=== PATIENT | male | born 1970 | race Caucasian/White ===

== ENCOUNTER 2021-09-18 07:53 | Outpatient (REF) | payer MEDICARE, MEDICAID, SELFPAY ==
[2021-09-18 09:41] LABS: Hematocrit 50.7 % (42.0-52.0); Hemoglobin 16.6 g/dl (14.0-18.0); Mean Corpuscular HGB Conc 32.7 g/dl (31.0-36.0); Mean Corpuscular Hemoglobin 29.3 pg (27.0-33.0); Mean Corpuscular Volume 89.6 fL (80.0-98.0); Platelet Count 287 X10*3/uL (160-400); Red Blood Count 5.66 X10*6/uL (4.60-5.80); Red Cell Distribution Width 12.7 % (11.0-16.0); White Blood Count 12.2 X10*3/uL (4.8-10.8)
[2021-09-18 10:23] LABS: Alanine Aminotransferase 40 U/L (0-40); Albumin Level 4.6 g/dL (3.5-5.0); Alkaline Phosphatase 87 U/L (39-117); Anion Gap 13 (12-20); Aspartate Amino Transferase 22 U/L (5-37); Bilirubin Total 0.8 mg/dL (0.0-1.0); Blood Urea Nitrogen 13 mg/dL (9-16); Carbon Dioxide 26 mmol/L (22-29); Chloride 105 mmol/L (96-108); Estimated Glomerular Filt Rate > 60; Glucose Random 92 mg/dL (60-115); Potassium 4.5 mmol/L (3.3-5.1); Sodium 139 mmol/L (135-145); Total Protein 7.7 g/dL (6.5-8.0)
[2021-09-18 10:46] LABS: TSH reflex Free T4 1.24 uIU/mL (0.32-4.0)
[2021-09-18 11:01] LABS: Folate 7.8 ng/mL (> or = 4.0); Vitamin B12 388 pg/mL (200-900)
[2021-09-18 17:18] LABS: H Pylori Breath Test Negative (Negative)
[2021-09-22 14:26] LABS: Vitamin D 25-OH, D2 <4 ng/mL; Vitamin D 25-OH, D3 14 ng/mL; Vitamin D 25-OH, Total 14 ng/mL (30-100)
== END 2021-09-18 07:54 | disposition home or self-care (01) ==
LOC: HO.LAB 07:53
PROVIDERS: PCP Student in an Organized Health Care Education/Training Program; Visit Provider Nurse Practitioner Family
DX: R19.7 Diarrhea, unspecified (principal); K21.9 Gastro-esophageal reflux disease without esophagitis; E55.9 Vitamin D deficiency, unspecified; K59.01 Slow transit constipation; F17.210 Nicotine dependence, cigarettes, uncomplicated; Z11.0 Encounter for screening for intestinal infectious diseases
CPT/HCPCS: 36415; 80053; 82306; 82607; 82746; 83013; 84443; 85027; 99202

== ENCOUNTER → 2021-11-29 08:09 | Outpatient (BNVA) | payer MEDICARE, MEDICAID, SELFPAY | PROVIDERS: PCP Student in an Organized Health Care Education/Training Program; Visit Provider Nurse Practitioner Family | DX: Z12.11 Encounter for screening for malignant neoplasm of colon (principal); K21.9 Gastro-esophageal reflux disease without esophagitis; K59.01 Slow transit constipation | CPT/HCPCS: 99212 ==

== ENCOUNTER 2022-04-08 08:27 | Day surgery (SDC) | payer MEDICARE, MEDICAID, SELFPAY ==
[2022-04-03 15:40] VITALS: BMI 29.5
--- NOTE | 2022-04-07 14:20 | P.CONAN_ITS ---
Documented by User: Renee Caicedo NP 04/07/22 14:21 HPI - Anesthesia Eval Consult details Narrative: 51yo M for Upper Endoscopy and Colonoscopy [facility] Surgical History Surgical History Hx of eye surgery Social History Social History Alcohol intake: current Alcohol intake frequency: holidays/special occasions only Patient Tobacco Use Status: Current everyday Tobacco user Tobacco use type: Cigarette Cigarettes Per Day: 15 Use of substances other than those prescribed or required for medical reasons: Yes Substance Use Type: Marijuana Substance Use Frequency: Daily Advance Directives: No Advance Directives Information Provided: Yes Meds Allergies Allergy/AdvReac Type Severity Reaction Status Date / Time No Known Allergies Allergy Verified 11/29/21 08:14 Exam Exam Date and Time: April 07, 2022 1420 Height,Weight and Vital Signs: Height 5 ft 8 in Weight 87.997 kg Pertinent Lab Results Pertinent Lab Results: Laboratory Tests 09/18/21 09/18/21 09:23 09:23 WBC 12.2 H Hgb 16.6 Hct 50.7 Plt Count 287 Sodium 139 Potassium 4.5 Chloride 105 Carbon Dioxide 26 BUN 13 Creatinine 0.88 Assessment and Plan Assessment Anesthesia Assessment: Chart Reviewed Documented by User: Abhinav Umaña MD 04/08/22 09:58 [facility] Family History Family history of problems with anesthesia: No Surgical History Surgical History Hx of eye surgery History of Problems with Anesthesia: No Social History Social History Alcohol intake: current Alcohol intake frequency: holidays/special occasions only Patient Tobacco Use Status: Current everyday Tobacco user Tobacco use type: Cigarette Cigarettes Per Day: 15 Use of substances other than those prescribed or required for medical reasons: Yes Substance Use Type: Marijuana Substance Use Frequency: Daily Advance Directives: No Advance Directives Information Provided: Yes Meds Allergies Allergy/AdvReac Type Severity Reaction Status Date / Time No Known Allergies Allergy Verified 11/29/21 08:14 Exam Airway Mallampati Class: III TM Dist: >3cm Neck ROM: Full Heart: rrr Lungs: clear Assessment and Plan Final Anesthetic Review Family History of Problems with Anesthesia: No History of Problems with Anesthesia: No NPO: Yes ASA Class: II Final Preanesthetic Review: No Changes in Pt Med Stat, Meds/Allgs Chart Reviewed, Consent Obtained/Reviewed and Anes Risks/Benef Reviewed Patient Risk: Intermediate Procedure Risk: Low Anesthetic Plan Anesthetic Plan: MAC: Disposition: Standard PACU
[2022-04-08 08:53] VITALS: BP 118/82; PULSE 71; RESP 16; TEMP 36.3; O2SAT 96; BMI 28.8
--- NOTE | 2022-04-08 09:05 | MHC.SHP ---
Pre-Procedural Eval Section A Date of Service: 04/08/22 Section B Chief Complaint: reflux disease,screening Relevant Family History (Specify if Yes): No Relevant Social History: Tobacco Use (smokes THC) Present Medications: see Short Stay Collaborative assessment Medical History: Significant History (gerd,glaucoma) History of Previous Operations: Relevant previous surgery/procedure and date(s) (Hx of eye surgery) Allergies: Allergies Allergy/AdvReac Type Severity Reaction Status Date / Time No Known Allergies Allergy Verified 11/29/21 08:14 Review of Systems Sugical H&P ROS: Negative: Constitution, Cardiovascular, Respiratory, Neurological, Psychiatric, Hem-Onc, Allergic/Immunologic, Gastrointestinal, Genitourinary, Musculoskeletal, Integumentary, Endocrine and Eyes/Ears/Nose/Throat Exam Surgical H&P Exam: Normal: Heart, Normal: Lungs, Normal: Extremities, Normal: Abdomen, Normal: Skin and Normal: Neurological and Significant Findings: HEENT (prominent eyes) Plan Diagnosis/Plan: Unchanged I have reviewed the history and physical and performed a pertinent physical examination on my patient. No changes have occurred unless specified.
--- NOTE | 2022-04-08 10:07 | W.PM.OPN ---
Operative Note Operative Note Date of Service: 04/08/22 Narrative: Operative Information Procedure Description: EGD, Colonoscopy Indication: reflux, colon screening Anesthesia: MAC FLEXIBLE TRANSORAL UPPER GASTROINTESTINAL ENDOSCOPY AND COLONOSCOPY PROCEDURE NOTE UPPER ENDOSCOPY Consent: Indications for the procedure and potential complications of bleeding, perforation, reaction to medications and missed diagnosis were discussed with the patient and informed consent was obtained. Instrument: Olympus GIF H 190 J mid size upper endoscope Monitoring: Vital signs and clinical assessment, continuous EKG monitoring, Pulse oximetry, Carbon Dioxide monitoring and blood pressure monitoring were done throughout the procedure. Procedure: The patient was placed in the left lateral decubitis position and pre-procedure medications were administered and a bite block was placed. The endoscope was inserted into the mouth and advanced under direct vision to the third part of duodenum. A careful inspection was made as the upper endoscope was withdrawn including a retroflexed examination of the proximal stomach; Findings and interventions are described below. Findings: Larynx:normal Esophagus: GE junction at 37 cm, diaphragm hiatus at 40 cm, consistent with 3 cm sliding hiatal hernia, random esophageal bx taken Stomach:linear erythematous streaks in antrum. Biopsies were obtained. Grade 2 flap valve on retroflexed examination of the cardia. Duodenum: mild bulbar duodenitis, bx taken Intervention: Biopsies as noted above COLONOSCOPY Instrument: Olympus variable stiffness adult scope 190L Colonoscopy Monitoring: Vital signs and clinical assessment, continuous EKG monitoring, Pulse oximetry, Carbon Dioxide monitoring and blood pressure monitoring were done throughout the procedure. Colon withdrawal time was 12 minutes. Procedure: The patient was placed in the left lateral decubitis position and pre-procedure medications were administered. After a digital rectal examination of the ano-rectum, the video colonoscope was inserted into the rectum and advanced through the colon to the cecum/TI. The colonoscope was slowly withdrawn in a retrograde panoramic fashion and the colon mucosa was carefully examined including a retroflexed view of the rectum. Findings and interventions are described below. Procedure Difficulty:easy Findings: Terminal Ileum-normal Cecum: 8-10 mm sessile polyp removed with cold snare Ascending Colon: normal Transverse Colon -normal Descending Colon:normal Sigmoid Colon: normal Rectum: Retroflexion with small internal hemorrhoids, grade I, 12 mm sessile polyp removed with cold snare and x 3 clips applied for hemostasis. Anorectum - normal Colon preparation: [place] Bowel Preparation Scale Right colon; 1-2 Transverse colon: 2 Left colon; 2 (0 = Unprepared colon segment with mucosa not seen due to solid stool that cannot be cleared. 1 = Portion of mucosa of the colon segment seen, but other areas of the colon segment not well seen due to staining, residual stool and/or opaque liquid. 2 = Minor amount of residual staining, small fragments of stool and/or opaque liquid, but mucosa of colon segment seen well. 3 = Entire mucosa of colon segment seen well with no residual staining, small fragments of stool or opaque liquid) Impression and Post Procedure Diagnosis: Endoscopy Findings: hiatal hernia gastritis duodenitis Colonoscopy Findings: polyps internal hemorrhoids Plan: Await Pathology results Repeat Colonoscopy in 2-3 years due to polyps and fair prep close to the cecum or earlier if clinically indicated High fiber diet leaflet avoid straining at stool, epsom salts and sitz bath, anusol supps or cream reflux precautions Above findings were reviewed with the patient and relevant handouts were provided if indicated.
[2022-04-08 10:45] VITALS: BP 96/62; PULSE 72; RESP 20; TEMP 36.2; O2SAT 95
[2022-04-08 11:00] VITALS: BP 114/83; PULSE 74; RESP 16; TEMP 36.2; O2SAT 96
== END 2022-04-08 11:39 | disposition home or self-care (01) ==
PROVIDERS: Visit Provider Internal Medicine Gastroenterology
PROC: (CPT 45385; principal; 2022-04-08 10:00)
DX: Z12.11 Encounter for screening for malignant neoplasm of colon (principal); D12.8 Benign neoplasm of rectum; K63.5 Polyp of colon; K64.0 First degree hemorrhoids; K59.01 Slow transit constipation; K21.9 Gastro-esophageal reflux disease without esophagitis; K29.80 Duodenitis without bleeding; K29.50 Unspecified chronic gastritis without bleeding; K44.9 Diaphragmatic hernia without obstruction or gangrene; Z79.899 Other long term (current) drug therapy; F17.210 Nicotine dependence, cigarettes, uncomplicated
CPT/HCPCS: 45385; 43239; 88305; 88342

== ENCOUNTER → 2022-04-21 07:56 | Outpatient (BNVA) | payer MEDICARE, MEDICAID, SELFPAY | PROVIDERS: Visit Provider Nurse Practitioner Family | DX: K21.00 Gastro-esophageal reflux disease with esophagitis, without bleeding (principal); D36.9 Benign neoplasm, unspecified site; Z98.890 Other specified postprocedural states | CPT/HCPCS: 99212 ==

== ENCOUNTER → 2022-07-23 08:23 | Outpatient (BNVA) | payer MEDICARE, MEDICAID, SELFPAY | PROVIDERS: Visit Provider Nurse Practitioner Family | DX: K21.9 Gastro-esophageal reflux disease without esophagitis (principal); Z79.899 Other long term (current) drug therapy; Z86.010 Personal history of colon polyps | CPT/HCPCS: 99212 ==

== ENCOUNTER → 2023-01-15 10:11 | Outpatient (BNVA) | payer MEDICARE, MEDICAID, SELFPAY | PROVIDERS: Visit Provider Nurse Practitioner Family | DX: K21.9 Gastro-esophageal reflux disease without esophagitis (principal); R14.0 Abdominal distension (gaseous) | CPT/HCPCS: 99212 ==

== ENCOUNTER 2023-06-23 10:05 | Outpatient (REF) | payer MEDICARE, MEDICAID, SELFPAY ==
[2023-06-23 14:47] LABS: Basophils Absolute Auto 0.1 X10*3/uL (0.0-0.2); Basophils Percent Auto 0.4 % (0-2); Eosinophils Absolute Auto 2.2 X10*3/uL (0.0-0.4); Hemoglobin 14.9 g/dl (14.0-18.0); Imm Gran Abs Auto 0.05 X10*3/uL (0.00-0.03); Imm Gran Pct Auto 0.4 % (0.0-0.4); Lymphocytes Percent Auto 14.5 % (20-40); MANUAL DIFF FLAG SCAN; Mean Corpuscular HGB Conc 31.7 g/dl (31.0-36.0); Mean Corpuscular Hemoglobin 28.4 pg (27.0-33.0); Mean Corpuscular Volume 89.7 fL (80.0-98.0); Mean Platelet Volume 9.9 fL (9.4-12.4); Monocytes Absolute Auto 0.9 X10*3/uL (0.1-1.2); Monocytes Percent Auto 6.6 % (2-11); Neutrophils Absolute Auto 8.6 x10*3/uL (2.0-8.3); Neutrophils Percent Auto 62.1 % (45-73); Platelet Count 315 X10*3/uL (160-400); Red Blood Count 5.24 X10*6/uL (4.60-5.80); Red Cell Distribution Width 12.8 % (11.0-16.0); SCAN SMEAR FLAG 1; White Blood Count 13.9 X10*3/uL (4.8-10.8)
[2023-06-23 14:52] LABS: Alanine Aminotransferase 32 U/L (0-40); Albumin Level 4.3 g/dL (3.5-5.0); Alkaline Phosphatase 109 U/L (39-117); Aspartate Amino Transferase 19 U/L (5-37); Bilirubin Direct 0.3 mg/dL (0.0-0.5); Bilirubin Total 0.8 mg/dL (0.0-1.0); Total Protein 7.4 g/dL (6.5-8.0)
[2023-06-23 15:10] LABS: SLIDE REVIEW VERIFIED
== END 2023-06-23 10:06 | disposition home or self-care (01) ==
LOC: HO.CHCLDS 10:05
PROVIDERS: Visit Provider Student in an Organized Health Care Education/Training Program
DX: K62.5 Hemorrhage of anus and rectum (principal)
CPT/HCPCS: 36415; 80076; 85025

== ENCOUNTER 2023-06-29 09:09 | Outpatient (REF) | payer MEDICARE, MEDICAID, SELFPAY ==
[2023-06-29 10:32] LABS: Hematocrit 44.7 % (42.0-52.0); Hemoglobin 14.3 g/dl (14.0-18.0); Mean Corpuscular Hemoglobin 28.3 pg (27.0-33.0); Mean Corpuscular Volume 88.3 fL (80.0-98.0); Mean Platelet Volume 9.1 fL (9.4-12.4); Platelet Count 310 X10*3/uL (160-400); Red Blood Count 5.06 X10*6/uL (4.60-5.80); Red Cell Distribution Width 12.7 % (11.0-16.0); White Blood Count 11.6 X10*3/uL (4.8-10.8)
== END 2023-06-29 09:10 | disposition home or self-care (01) ==
LOC: HO.LAB 09:09
PROVIDERS: PCP Student in an Organized Health Care Education/Training Program; Visit Provider Nurse Practitioner Family
DX: K21.9 Gastro-esophageal reflux disease without esophagitis (principal); K62.5 Hemorrhage of anus and rectum; R14.0 Abdominal distension (gaseous); K64.8 Other hemorrhoids; K59.00 Constipation, unspecified
CPT/HCPCS: 36415; 85027; 99212

== ENCOUNTER 2023-06-29 09:09 | Outpatient (AMB) | payer MEDICARE, MEDICAID, SELFPAY ==
--- NOTE | 2023-06-29 09:21 | A.OFFVIS_ITS ---
Intake Vital Signs 06/29/23 09:22 Height 5 ft 8 in Weight 194 lb 7.163 oz BMI 29.6 BP 124/75 Blood Pressure Location Lt brachial Position Sitting Pulse 67 Intake Visit Reasons: Rectal bleeding Intake Note: Patient presents to in office visit today for rectal bleeding. CC: Patient reports he has been having rectal bleeding for about 3 months. She states he started bleeding rectally since he was placed in a lot of medications. He also c/o nausea almost every morning. Patient states GERD is under control with pantoprazole. 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 Continue avoiding dietary triggers and late night snacking. Staying upright for minimal 3 hours after meals discussed with patient. Postprandial abdominal bloating Patient reports postprandial abdominal bloating. List of food recommended as well as list of food to avoid given to him. Low avoid map diet discussed. Simethicone sent to pharmacy. Patient will call the office if he will continue to have symptoms or any additional GI concerning symptoms. I will see him in 6 months, sooner on as needed basis. Patient is agreeable to this plan and verbalizes understanding of instructions. He was given the opportunity to ask questions all questions answered. ? Thank you for allowing me to participate in his care Plan Medications New simethicone 125 mg PO BID-QID PRN 120 caps 3RF abdominal distention TODAY'S VISIT Patient is here today for follow-up. Patient reports that he has been having on and off rectal bleeding for the last 3 months. Patient reports that his stools are hard. Denies straining. Patient had colonoscopy in March of 2022 that showed internal hemorrhoids, tubular adenoma found and due to suboptimal prep patient was encouraged to return in 2-3 years for colonoscopy. Patient reports occasional postprandial abdominal bloating. Denies any abdominal pain or discomfort. Denies melena. Reports that his symptoms of acid reflux are currently suppressed with pantoprazole. Patient denies any dyspepsia, dysphagia or odynophagia. Patient no longer is taking Colace. Patient reports to be drinking plenty fluids. [facility] Medical History Tubular adenoma Surgical History Hx of colonoscopy History of esophagogastroduodenoscopy (EGD) Hx of eye surgery Social History Alcohol intake: current Alcohol intake frequency: holidays/special occasions only Patient Tobacco Use Status: Current everyday Tobacco user Tobacco use type: Cigarette Cigarettes Per Day: 15 Substance Use Type: Marijuana Review of Systems Const Denies weight gain and Denies weight loss ENT Reports no additional complaints, Denies dysphagia and Denies odynophagia Card Reports no additional complaints Resp Reports no additional complaints GI Denies abdominal pain, Denies belching, Denies melena, Reports bloating (occasional), Reports hematochezia (Occasional), Denies change in bowel habits, Denies dysphagia, Denies excessive flatus, Denies dyspepsia, Denies heartburn, Denies diarrhea, Denies loose stools, Denies nausea, Denies odynophagia and Denies vomiting Reports no additional complaints Musc Reports no additional complaints Neuro Reports no additional complaints Psych Reports no additional complaints Endo Reports no additional complaints Physical Exam Vital Signs: Last Vital Signs Pulse 67 06/29/23 09:22 BP 124/75 06/29/23 09:22 BMI result Body Mass Index 29.6 Const General: healthy appearing, no acute distress and well developed Nutritional Appearance: well nourished Orientation/consciousness: patient oriented x3 HEENT Head: Yes normal to inspection, Yes normocephalic and Yes atraumatic Face and sinus: Yes normal facial exam Mouth: Normal oral and palatal mucosa present Throat: Yes posterior oropharynx normal, Yes tonsils normal and Yes uvula midline Eyes General: appearance normal, both eyes and all related structures Neck Neck: Yes normal visual inspection, Yes full ROM and Yes trachea midline Thyroid: Thyroid normal Resp Effort & Inspection: normal respiratory effort, able to speak in complete sentences, no tracheal deviation and symmetric chest movement Auscultation: clear to auscultation bilaterally Cardio Rate: regular rate GI Inspection: Yes normal to inspection, No distended and Yes obesity Palpation (GI): Soft to palpation, not firm, nontender and No hepatosplenomegaly present Auscultation: normal bowel sounds General: Yes no CVA tenderness Back/Spine/Pelvis Back: no CVA tenderness Skin General skin exam: elasticity normal, turgor normal and dry skin Neuro General: patient oriented x3 Psych Appearance: grossly normal Mental Status: mental status grossly normal Assessment & Plan Assessment & Plan (1) GERD (gastroesophageal reflux disease): Code(s): K21.9 - Gastro-esophageal reflux disease without esophagitis Qualifiers: Esophagitis presence: without esophagitis Qualified Code(s): K21.9 - Gastro-esophageal reflux disease without esophagitis (2) Postprandial abdominal bloating: Code(s): R14.0 - Abdominal distension (gaseous) (3) Rectal bleed: Code(s): K62.5 - Hemorrhage of anus and rectum (4) Internal hemorrhoids without complication: Code(s): K64.8 - Other hemorrhoids Plan Continue pantoprazole every morning half an hour before breakfast. Discussed with patient avoiding dietary triggers and late night snacking. Staying upright for minimal 3 hours after meals discussed with patient. Patient will start taking stool softener 1-2 tablets every evening. Patient will start Proctosol. Patient can also use Epsom salts and Sitz baths. Will send patient to check CBC is to rule out anemia, if anemic will proceed with booking colonoscopy earlier. Patient was also encouraged to increase fluid intake and activity to promote better bowel motility. Patient will return in 4 weeks, sooner on as needed basis. Patient is agreeable to this plan and verbalizes understanding of instructions. He was given the opportunity to ask questions and all questions answered. Thank you for allowing me to participate in his care Orders: Orders Complete Blood Count no Diff Today K21.9 - Gastro-esophageal reflux disease without esophagitis Medications: New hydrocortisone 2.5% (Proctosol HC) 1 appl [place] BID-QID PRN 30 grams 2RF hemorrhoids K64.9 - Unspecified hemorrhoids Refilled docusate sodium 100 mg PO BEDTIME 90 caps 3RF K59.00 - Constipation, unspecified pantoprazole take one tablet half an hour before breakfast and one tablet half an hour before dinner 40 mg PO BID 180 tabs 2RF K21.9 - Gastro-esophageal reflux disease without esophagitis Coding Level of Care Code Est Pt Level 3 (43266) Diagnoses Gastroesophageal reflux disease without esophagitis K21.9 Esophagitis presence: without esophagitis Postprandial abdominal bloating R14.0 Rectal bleed K62.5 Internal hemorrhoids without complication K64.8 Time Spent (min) 30 Comment 20 minutes spent with patient and additional 10 minutes spent reviewing his records
[2023-06-29 09:22] VITALS: BP 124/75; PULSE 67; BMI 29.6
== END 2023-06-29 09:49 | disposition home or self-care (01) ==
PROVIDERS: Visit Provider Nurse Practitioner Family
DX: K21.9 Gastro-esophageal reflux disease without esophagitis (principal); R14.0 Abdominal distension (gaseous); K62.5 Hemorrhage of anus and rectum; K64.8 Other hemorrhoids
CPT/HCPCS: 99213

== ENCOUNTER 2023-08-19 10:17 | Outpatient (AMB) | payer MEDICARE, MEDICAID, SELFPAY ==
--- NOTE | 2023-08-19 10:24 | MHC.OFFVIS ---
Intake Vital Signs 08/19/23 10:25 Height 5 ft 8 in Weight 185 lb BMI 28.1 BP 108/71 Blood Pressure Location Lt brachial Position Sitting Pulse 79 Intake Visit Reasons: 4 week follow up Intake Note: Patient follow up for GERD and lab results. Patient cc: bloody hemorrhoids with some constipation. Denies any other GI issues. Side Hemmer Required: No Accompanied by: Self / Same As Patient Allergies No Known Allergies Allergy (Verified 08/19/23 10:24) HPI 4 week follow up HPI Details LAST VISIT GERD (gastroesophageal reflux disease) Postprandial abdominal bloating Rectal bleed Internal hemorrhoids without complication Plan Continue pantoprazole every morning half an hour before breakfast. Discussed with patient avoiding dietary triggers and late night snacking. Staying upright for minimal 3 hours after meals discussed with patient. Patient will start taking stool softener 1-2 tablets every evening. Patient will start Proctosol. Patient can also use Epsom salts and Sitz baths. Will send patient to check CBC is to rule out anemia, if anemic will proceed with booking colonoscopy earlier. Patient was also encouraged to increase fluid intake and activity to promote better bowel motility. Patient will return in 4 weeks, sooner on as needed basis. Patient is agreeable to this plan and verbalizes understanding of instructions. He was given the opportunity to ask questions and all questions answered. ? Thank you for allowing me to participate in his care Orders Orders Complete Blood Count no Diff Today K21.9 Medications New hydrocortisone 2.5% (Proctosol HC) 1 appl [place] BID-QID PRN 30 grams 2RF hemorrhoids K64.9 Refilled docusate sodium 100 mg PO BEDTIME 90 caps 3RF K59.00 pantoprazole take one tablet half an hour before breakfast and one tablet half an hour before dinner 40 mg PO BID 180 tabs 2RF K21.9 TODAY'S VISIT Patient is here today for follow-up. Patient continues to have occasional acid reflux depending on what he eats. Patient occasionally eats spicy food. Occasional blood in his stool specially after he eats something spicy. Patient continues to take 1 Colace daily. Patient denies any rectal pain or discomfort. Reports blood on the stool after bowel movement, no keith rectal bleeding or melena. Patient denies any dyspepsia, dysphagia or odynophagia. Patient is on Plavix and Eliquis, status post drug-eluting stent placement in May of 2022. Patient denies any abdominal pain or discomfort. Symptoms of acid reflux are suppressed for the most part with pantoprazole. Patient denies any nausea or vomiting. Patient denies any diarrhea. [facility] Medical History Tubular adenoma Surgical History Hx of colonoscopy History of esophagogastroduodenoscopy (EGD) Hx of eye surgery Social History Alcohol intake: current Alcohol intake frequency: holidays/special occasions only Patient Tobacco Use Status: Current everyday Tobacco user Tobacco use type: Cigarette Cigarettes Per Day: 15 Substance Use Type: Marijuana Review of Systems Const Denies weight gain and Denies weight loss ENT Reports no additional complaints, Denies dysphagia and Denies odynophagia Card Reports no additional complaints Resp Reports no additional complaints GI Denies abdominal pain, Denies belching, Denies melena, Denies bloating, Reports hematochezia, Denies change in bowel habits, Reports constipation, Denies dysphagia, Denies excessive flatus, Denies dyspepsia, Reports heartburn (Occasional), Denies diarrhea, Denies loose stools, Denies nausea, Denies odynophagia and Denies vomiting Reports no additional complaints Musc Reports no additional complaints Neuro Reports no additional complaints Psych Reports no additional complaints Endo Reports no additional complaints Physical Exam Vital Signs: Last Vital Signs Pulse 79 08/19/23 10:25 BP 108/71 08/19/23 10:25 BMI result Body Mass Index 28.1 Const General: healthy appearing, no acute distress and well developed Nutritional Appearance: well nourished Orientation/consciousness: patient oriented x3 Resp Effort & Inspection: normal respiratory effort, able to speak in complete sentences, no tracheal deviation and symmetric chest movement Auscultation: clear to auscultation bilaterally Cardio Rate: regular rate GI Inspection: Yes normal to inspection and No distended Palpation (GI): Soft to palpation, not firm, nontender and No hepatosplenomegaly present Auscultation: normal bowel sounds General: Yes no CVA tenderness Back/Spine/Pelvis Back: no CVA tenderness Skin General skin exam: elasticity normal, turgor normal and dry skin Neuro General: patient oriented x3 Psych Appearance: grossly normal Mental Status: mental status grossly normal Assessment & Plan Assessment & Plan (1) GERD (gastroesophageal reflux disease): Code(s): K21.9 - Gastro-esophageal reflux disease without esophagitis Qualifiers: Esophagitis presence: esophagitis presence not specified Qualified Code(s): K21.9 - Gastro-esophageal reflux disease without esophagitis (2) Postprandial abdominal bloating: Code(s): R14.0 - Abdominal distension (gaseous) (3) Rectal bleed: Code(s): K62.5 - Hemorrhage of anus and rectum (4) Internal hemorrhoids without complication: Code(s): K64.8 - Other hemorrhoids Plan Patient will avoid dietary triggers. Avoid spicy food. Increase fluid intake and activity to promote better bowel motility. Patient will increase Colace to 2 capsules daily. Patient will try hemorrhoid cream for an next week 2 to 3 times a day. Sitz baths with Epsom salts daily. I will see him in 5 weeks, sooner on as needed basis. If patient will continue with symptoms we will refer him to surgery. However patient reports that his PCP checked for hemorrhoids and has not seen any. Small Internal hemorrhoids seen on colonoscopy in 2021. We may send him for sigmoidoscopy if he continues to bleed rectally. Patient is agreeable to this plan and verbalizes understanding of instructions. He was given the opportunity to ask questions and all questions answered. Thank you for allowing me to participate in his care. Medications: Changed From docusate sodium 100 mg PO BEDTIME 90 caps 3RF K59.00 - Constipation, unspecified To docusate sodium 200 mg (2 x 100 mg) PO BEDTIME 180 caps 3RF K59.00 - Constipation, unspecified Coding Level of Care Code Est Pt Level 4 (46059) Diagnoses Gastroesophageal reflux disease, unspecified whether esophagitis present K21.9 Esophagitis presence: esophagitis presence not specified Postprandial abdominal bloating R14.0 Rectal bleed K62.5 Internal hemorrhoids without complication K64.8 Time Spent (min) 35 Comment 20 minutes spent with patient and additional 15 minutes spent reviewing his records
[2023-08-19 10:25] VITALS: BP 108/71; PULSE 79; BMI 28.1
== END 2023-08-19 10:50 | disposition home or self-care (01) ==
PROVIDERS: PCP Student in an Organized Health Care Education/Training Program; Visit Provider Nurse Practitioner Family
DX: K21.9 Gastro-esophageal reflux disease without esophagitis (principal); R14.0 Abdominal distension (gaseous); K62.5 Hemorrhage of anus and rectum; K64.8 Other hemorrhoids
CPT/HCPCS: 99214

== ENCOUNTER → 2023-08-19 10:17 | Outpatient (BNVA) | payer MEDICARE, MEDICAID, SELFPAY | PROVIDERS: PCP Student in an Organized Health Care Education/Training Program; Visit Provider Nurse Practitioner Family | DX: K21.9 Gastro-esophageal reflux disease without esophagitis (principal); R14.0 Abdominal distension (gaseous); K62.5 Hemorrhage of anus and rectum; K64.8 Other hemorrhoids; K59.00 Constipation, unspecified | CPT/HCPCS: 99212 ==

== ENCOUNTER 2023-09-14 11:11 | Emergency (ER) | payer OTHER, MEDICARE, MEDICAID, SELFPAY ==
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
[2023-09-14 12:03] VITALS: BP 124/74; PULSE 70; RESP 16; TEMP 36.9; O2SAT 98; BMI 29.1
== END 2023-09-14 17:23 | disposition home or self-care (01) ==
PROVIDERS: Emergency Provider Emergency Medicine Emergency Medical Services; PCP Student in an Organized Health Care Education/Training Program
DX: S13.4XXA Sprain of ligaments of cervical spine, initial encounter (principal); Z79.01 Long term (current) use of anticoagulants; Z79.02 Long term (current) use of antithrombotics/antiplatelets; V49.40XA Driver injured in collision with unspecified motor vehicles in traffic accident, initial encounter; Y93.9 Activity, unspecified; Y92.9 Unspecified place or not applicable; Y99.9 Unspecified external cause status
CPT/HCPCS: 72040; 72125; 99282; 99284

== ENCOUNTER 2023-09-25 11:24 | Outpatient (AMB) | payer MEDICARE, MEDICAID, SELFPAY ==
[2023-09-25 11:25] VITALS: BP 120/79; PULSE 74; BMI 29.3
--- NOTE | 2023-09-25 11:25 | A.OFFVIS_ITS ---
Intake Vital Signs 09/25/23 11:25 Height 5 ft 8 in Weight 192 lb 10.944 oz BMI 29.3 BP 120/79 Blood Pressure Location Rt brachial Position Sitting Pulse 74 Pulse Source Pulse Oximeter Intake Visit Reasons: 5 week follow up GERD Intake Note: Patient here to follow up Gerd. Last office visit 08-19-23.Pt states he is feeling well and states that the pantoprazole is helping and states he does not get acid reflux as much as he used to. He states if he eats late at night he will get a little acid reflux but other than that it is almost completely gone. Allergies No Known Allergies Allergy (Verified 09/25/23 11:27) HPI 5 week follow up GERD HPI Details LAST VISIT: GERD (gastroesophageal reflux disease) Postprandial abdominal bloating Rectal bleed Internal hemorrhoids without complication Plan Patient will avoid dietary triggers. Avoid spicy food. Increase fluid intake and activity to promote better bowel motility. Patient will increase Colace to 2 capsules daily. Patient will try hemorrhoid cream for an next week 2 to 3 times a day. Sitz baths with Epsom salts daily. I will see him in 5 weeks, sooner on as needed basis. If patient will continue with symptoms we will refer him to surgery. However patient reports that his PCP checked for hemorrhoids and has not seen any. Small Internal hemorrhoids seen on colonoscopy in 2021. We may send him for sigmoidoscopy if he continues to bleed rectally. Patient is agreeable to this plan and verbalizes understanding of instructions. He was given the opportunity to ask questions and all questions answered. ? Thank you for allowing me to participate in his care. Medications Changed Changed From docusate sodium 100 mg PO BEDTIME 90 caps 3RF K59.00 Changed To docusate sodium 200 mg (2 x 100 mg) PO BEDTIME 180 caps 3RF K59.00 TODAY'S VISIT Patient is here today for follow-up. Patient reports that he has been taking to Colace every evening and he has no longer have rectal bleed. Occasionally he might have a blood after bowel movement when wiping. Patient states that it happens about 4 times a month. Patient would like to get a refill to a surgeon regarding hemorrhoids. Symptoms of acid reflux are suppressed with pantoprazole. Patient denies any dyspepsia, dysphagia or odynophagia reports to be feeling well. Good appetite. PFSH Medical History Tubular adenoma Surgical History Hx of colonoscopy History of esophagogastroduodenoscopy (EGD) Hx of eye surgery Social History (Updated 09/25/23 @ 11:27 by Kenia Bay MA) Alcohol intake: current Alcohol intake frequency: holidays/special occasions only Patient Tobacco Use Status: Former Tobacco user Substance Use Type: Marijuana Review of Systems Const Denies weight gain and Denies weight loss ENT Reports no additional complaints, Denies dysphagia and Denies odynophagia Card Reports no additional complaints Resp Reports no additional complaints GI Denies abdominal pain, Denies belching, Denies melena, Denies bloating, Reports hematochezia (Occasional), Denies change in bowel habits, Denies dysphagia, Denies excessive flatus, Denies dyspepsia, Denies heartburn, Denies diarrhea, Denies loose stools, Denies nausea, Denies odynophagia and Denies vomiting Reports no additional complaints Musc Reports no additional complaints Neuro Reports no additional complaints Psych Reports no additional complaints Endo Reports no additional complaints Physical Exam Vital Signs: Last Vital Signs Pulse 74 09/25/23 11:25 BP 120/79 09/25/23 11:25 BMI result Body Mass Index 29.3 Const General: healthy appearing, no acute distress and well developed Nutritional Appearance: obese Orientation/consciousness: patient oriented x3 Resp Effort & Inspection: normal respiratory effort, able to speak in complete sentences, no tracheal deviation and symmetric chest movement Auscultation: clear to auscultation bilaterally Cardio Rate: regular rate GI Inspection: Yes normal to inspection, No distended and Yes obesity Palpation (GI): Soft to palpation, not firm, nontender and No hepatosplenomegaly present Auscultation: normal bowel sounds General: Yes no CVA tenderness Back/Spine/Pelvis Back: no CVA tenderness Skin General skin exam: elasticity normal, turgor normal and dry skin Neuro General: patient oriented x3 Psych Appearance: grossly normal Mental Status: mental status grossly normal Assessment & Plan Assessment & Plan (1) Internal hemorrhoids without complication: Code(s): K64.8 - Other hemorrhoids (2) GERD (gastroesophageal reflux disease): Code(s): K21.9 - Gastro-esophageal reflux disease without esophagitis Qualifiers: Esophagitis presence: esophagitis presence not specified Qualified Code(s): K21.9 - Gastro-esophageal reflux disease without esophagitis (3) Postprandial abdominal bloating: Code(s): R14.0 - Abdominal distension (gaseous) (4) Rectal bleed: Code(s): K62.5 - Hemorrhage of anus and rectum Plan Patient will be referred to General surgery to evaluate hemorrhoids. Patient was encouraged to continue taking Colace, use Proctosol on as needed basis. Continue pantoprazole. Discussed with patient avoiding dietary triggers in late night snacking. Staying upright for minimal 3 hours after meals discussed with patient. I will see him in 6 months, sooner on as needed basis. Patient is agreeable to this plan and verbalizes understanding of instructions. He was given the opportunity to ask questions and all questions answered. Thank you for allowing me to participate in his care Orders: Referrals General Surgery Referral K64.8 - Other hemorrhoids Medications: Refilled pantoprazole take one tablet half an hour before breakfast and one tablet half an hour before dinner 40 mg PO BID 180 tabs 2RF K21.9 - Gastro-esophageal reflux disease without esophagitis docusate sodium 200 mg (2 x 100 mg) PO BEDTIME 180 caps 3RF K59.00 - Constipation, unspecified Coding Level of Care Code Est Pt Level 3 (32275) Diagnoses Internal hemorrhoids without complication K64.8 Gastroesophageal reflux disease, unspecified whether esophagitis present K21.9 Esophagitis presence: esophagitis presence not specified Postprandial abdominal bloating R14.0 Rectal bleed K62.5 Time Spent (min) 25 Comment 15 minutes spent with patient and additional 10 minutes spent reviewing his records
== END 2023-09-25 11:43 | disposition home or self-care (01) ==
PROVIDERS: PCP Student in an Organized Health Care Education/Training Program; Visit Provider Nurse Practitioner Family
DX: K64.8 Other hemorrhoids (principal); K21.9 Gastro-esophageal reflux disease without esophagitis; R14.0 Abdominal distension (gaseous); K62.5 Hemorrhage of anus and rectum
CPT/HCPCS: 99213

== ENCOUNTER → 2023-09-25 11:24 | Outpatient (BNVA) | payer MEDICARE, MEDICAID, SELFPAY | PROVIDERS: PCP Student in an Organized Health Care Education/Training Program; Visit Provider Nurse Practitioner Family | DX: K21.9 Gastro-esophageal reflux disease without esophagitis (principal); K62.5 Hemorrhage of anus and rectum; K64.8 Other hemorrhoids; R14.0 Abdominal distension (gaseous) | CPT/HCPCS: 99212 ==

== ENCOUNTER 2023-10-08 07:48 | Outpatient (REF) | payer MEDICARE, MEDICAID, SELFPAY ==
--- NOTE | ~2023-10-08 | CT_ITS ---
EXAMINATION: CT CHEST WITHOUT AND WITH CONTRAST CLINICAL INFORMATION: Cardiomyopathy, atrial fibrillation COMPARISON: None available. TECHNIQUE: Multidetector volumetric CT imaging of the chest was obtained before and after the administration of 65 mL of Omnipaque 350 intravenous contrast without immediate adverse reactions. Axial MIP volume rendering provided. Sagittal and coronal reformatted images were obtained. This CT examination was performed using dose optimization techniques as appropriate, variously including the following: *Automated exposure control *Adjustment of mA and/or kV according to patient size (this includes techniques or standardized protocols for targeted exams where dose is matched to indication/reason for exam; i.e. 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 MEDIASTINUM: The mediastinum is normal. There is ectasia of ascending aorta, measured 3.5 x 3.1 cm. CORONARY ARTERY CALCIFICATION: Coronary artery calcifications present PLEURA: There is no pleural effusion. No pleural mass or thickening. AXILLA: No lymphadenopathy. UPPER ABDOMEN: Unremarkable. OSSEOUS STRUCTURES: Unremarkable. CT/CT chest wo/w IV con IMPRESSION: 1. No lung nodules. 2. Coronary artery calcifications. 3. Ectasia of ascending aorta. Fleischner guidelines were followed.
[2023-10-08] MEDS: iohexoL 350 MG/ML 100 ML INFUS..BTL IV (09:39)
[2023-10-09 11:11] LABS: Creatinine POC 0.8 mg/dL (0.5-1.4); GFR POC > 60
== END 2023-10-08 07:49 | disposition home or self-care (01) ==
LOC: HO.CT 07:48
PROVIDERS: PCP Student in an Organized Health Care Education/Training Program; Visit Provider Internal Medicine Cardiovascular Disease
DX: I73.9 Peripheral vascular disease, unspecified (principal)
CPT/HCPCS: 71270; 82565; Q9967

== ENCOUNTER 2023-10-19 10:54 | Outpatient (AMB) | payer MEDICARE, MEDICAID, SELFPAY ==
[2023-10-19 10:59] VITALS: BP 116/66; PULSE 65; BMI 28.7
--- NOTE | 2023-10-19 10:59 | A.OFFVIS_ITS ---
Intake Vital Signs 10/19/23 10:59 Height 5 ft 8 in Weight 189 lb BMI 28.7 BP 116/66 Blood Pressure Location Rt brachial Position Sitting Pulse 65 Intake Visit Reasons: hemorrhoids Intake Note: This patient presents for an assessment for hemorrhoids. Pt c/o; reports rectal bleeding for the last 3 days, reports no constipation, reports no straining with bowel movements. Occupational Therapist Assistant Required: No Accompanied by: Self / Same As Patient Allergies No Known Allergies Allergy (Verified 10/19/23 11:12) Medication List - Last Reconciled 10/19/23 by Bharath Delaney MD apixaban (Eliquis) 5 mg PO BID atorvastatin 80 mg PO DAILY brinzolamide-brimonidine 1-0.2 % (Simbrinza) drps ophthalmic (eye) clopidogrel 75 mg PO DAILY cyclobenzaprine 5 mg PO BEDTIME PRN docusate sodium 200 mg (2 x 100 mg) PO BEDTIME hydrocortisone 2.5% (Proctosol HC) 1 appl AL BID-QID PRN lidocaine 5% (Lidoderm) 1 patch topical DAILY metoprolol succinate ER 25 mg PO DAILY pantoprazole 40 mg PO BID simethicone 125 mg PO BID-QID PRN timolol maleate 0.5% drps ophthalmic (eye) trazodone 100 mg PO BEDTIME valsartan 40 mg PO DAILY HPI hemorrhoids HPI Details [age] year old male referred for hemorrhoid issues. He describes frequent bleeding from his hemorrhoids for the past year. He says that sometimes this can be very heavy. He says that this may happen once a week or several times in a week. He denies any pain. He denies being constipated He is on blood thinners for a history of coronary disease with stents placed. He is seeing Dr. Viveros for this. He had an MA about 2 years ago. Otherwise, he says he feels well overall and does not have any chest pains anymore. [facility] Medical History (Updated 10/19/23 @ 11:22 by Bharath Delaney MD) Anticoagulated Coronary artery disease Bleeding hemorrhoids Tubular adenoma Surgical History (Updated 10/19/23 @ 11:22 by Bharath Delaney MD) Stented coronary artery Hx of colonoscopy History of esophagogastroduodenoscopy (EGD) Hx of eye surgery Social History Alcohol intake: current Alcohol intake frequency: holidays/special occasions only Patient Tobacco Use Status: Former Tobacco user Substance Use Type: Marijuana Review of Systems Const Denies chills and Denies fever(s) Card Denies chest pain, Denies dyspnea and Denies dyspnea on exertion Resp Denies cough, Denies dyspnea and Denies dyspnea on exertion GI Reports hematochezia, Denies change in bowel habits and Denies constipation Denies hematuria and Denies difficulty urinating Musc Denies back pain and Denies limited range of motion Neuro Denies focal weakness and Denies convulsions Psych Denies depression and Denies mood swings Physical Exam Vital Signs: Last Vital Signs Pulse 65 10/19/23 10:59 BP 116/66 10/19/23 10:59 BMI result Body Mass Index 28.7 Const General: comfortable and no acute distress Orientation/consciousness: patient oriented x3 Neck Neck: Yes no lymphadenopathy Resp Auscultation: clear to auscultation bilaterally Cardio Rhythm: regular rhythm GI Other: Rectal exam shows external hemorrhoids mostly posteriorly Palpation (GI): Soft to palpation, nontender and no guarding Neuro General: patient oriented x3 Office Procedures Anoscopy He was in patricia-knife position. The anoscope was gently inserted. A full examination of the anal canal was done. He did have moderate size internal external hemorrhoidal columns. One of the columns posteriorly appears to bleed easily. There were no other lesions. There was no fissure. There was no induration on digital exam. [id number] Assessment & Plan Assessment & Plan (1) Bleeding hemorrhoids: Code(s): K64.9 - Unspecified hemorrhoids Plan: I explained to him the option of proceeding with hemorrhoidectomy. I discussed the technique of this procedure. I reviewed the risks including but not limited to bleeding, infections, postop pain, poor healing, as well as the benefits and alternatives. He says he wants to proceed with hemorrhoidectomy in view of his frequent bleeding which is bothersome to him He has to hold his Plavix for 5 days prior to the procedure. Coding Level of Care Code New Pt Level 3 (88186) Diagnoses Bleeding hemorrhoids K64.9 CPT Codes Details - CPT: 56444-[id number] ([id number])
== END 2023-10-19 11:22 | disposition home or self-care (01) ==
PROVIDERS: PCP Student in an Organized Health Care Education/Training Program; Referring Provider Nurse Practitioner Family; Visit Provider Surgery
DX: K64.9 Unspecified hemorrhoids (principal)
CPT/HCPCS: 46600; 99203

== ENCOUNTER → 2023-10-19 10:54 | Outpatient (BNVA) | payer MEDICARE, MEDICAID, SELFPAY | PROVIDERS: PCP Student in an Organized Health Care Education/Training Program; Referring Provider Nurse Practitioner Family; Visit Provider Surgery | DX: K64.9 Unspecified hemorrhoids (principal); I25.10 Atherosclerotic heart disease of native coronary artery without angina pectoris; I10 Essential (primary) hypertension; Z95.5 Presence of coronary angioplasty implant and graft | CPT/HCPCS: 46600; 99202 ==

== ENCOUNTER 2023-11-20 07:47 | Day surgery (SDC) | payer MEDICARE, MEDICAID, SELFPAY ==
[2023-11-18 12:13] VITALS: BMI 28.7
--- NOTE | 2023-11-18 13:12 | P.CONAN_ITS ---
HPI - Anesthesia Eval Consult details Narrative: 53yo M for Exam Under Anesthesia, Hemorrhoidectomy Follows [facility] Cardiology for afib, CAD with NH/stent, CMP. Stable at 08/2023 office visit. Cleared for procedure. Eliquis for afib PMFSH Active Problems Active Problems: All Active Problems Stented coronary artery (Acute) Anticoagulated (Acute) Coronary artery disease (Acute) Bleeding hemorrhoids (Acute) Tubular adenoma (Acute) Past Medical History Medical History (Updated 11/18/23 @ 12:20 by Erin Diaz RN) PVD (peripheral vascular disease) SOB (shortness of breath) Cardiomyopathy Glaucoma GERD (gastroesophageal reflux disease) NSTEMI (non-ST elevated myocardial infarction) A-fib Anticoagulated Coronary artery disease Bleeding hemorrhoids Tubular adenoma Family History Family history of problems with anesthesia: No Surgical History Surgical History (Updated 11/18/23 @ 12:18 by Erin Diaz RN) History of trabeculectomy Stented coronary artery Hx of colonoscopy History of esophagogastroduodenoscopy (EGD) Hx of eye surgery History of Problems with Anesthesia: No Social History Social History (Updated 11/18/23 @ 12:13 by Erin Diaz RN) Household Members: Significant Other Housing: Apartment Are you a primary health care aide to a significant other at home: No Do you presently have visiting nurse or other home services: No Alcohol intake: current Alcohol intake frequency: holidays/special occasions only Patient Tobacco Use Status: Former Tobacco user Tobacco use type: Cigarette Use of substances other than those prescribed or required for medical reasons: Yes Substance Use Type: Marijuana Substance Use Frequency: Daily Are you DNR?: No Advance Directives: No Advance Directives Information Provided: No (declined) Advance Directives on File: No Recently lost weight without trying: No Poor oral hygiene: No Meds Allergies Allergy/AdvReac Type Severity Reaction Status Date / Time No Known Allergies Allergy Verified 11/18/23 12:12 Home Medications ?Medication ?Instructions ?Recorded ?Confirmed ?Last Taken ?Type apixaban 5 mg tablet (Eliquis) 5 mg PO BID 07/23/22 11/18/23 11/15/23 History atorvastatin 80 mg tablet 80 mg PO DAILY 07/23/22 11/18/23 Unknown History clopidogrel 75 mg tablet 75 mg PO DAILY 07/23/22 11/18/23 11/15/23 History metoprolol succinate 25 mg 25 mg PO DAILY 07/23/22 11/18/23 Unknown History tablet,extended release 24 hr valsartan 40 mg tablet 40 mg PO DAILY 07/23/22 11/18/23 Unknown History brinzolamide 1 %-brimonidine 0.2 % drp ophthalmic (eye) 06/29/23 10/19/23 Unknown History eye drops,suspension (Simbrinza) timolol maleate 0.5 % eye drops drp ophthalmic (eye) 06/29/23 10/19/23 Unknown History trazodone 100 mg tablet 100 mg PO BEDTIME 06/29/23 11/18/23 Unknown History Exam Height,Weight and Vital Signs: Height 5 ft 8 in Weight 85.729 kg Narrative Narrative: ECHO 05/2023 1. LV size is nml 2. Overall LV systolic function is low-nml with EF 50-55% 3. Grade 1 DD with impaired relax filling pattern and nml filling pressures 4. Sigmoid shaped septum with focal hypertrophy of basal septum. Remaining wall thickness is nml 5. Anterior apex - moderately hypokinetic 6. Apical septum - moderately hypokinetic 7. [place] - akinetic 8. RV sys function is nml 9. Mild to mod aortic regurg 10. Trace mitral regurg 11. No evidence of pulmo htn 12. Aortic root and ascending aorta are dilated at 4.8cm and 4.3cm C/W prior, EF and WMA remarkably improved, AscAA noted. Assessment and Plan Assessment Anesthesia Assessment: Chart Reviewed Final Anesthetic Review Family History of Problems with Anesthesia: No History of Problems with Anesthesia: No
[2023-11-20] VITALS (8 sets, daily range): BP systolic 108–140; BP diastolic 63–91; PULSE 62–83; RESP 12–16; TEMP 36.1–36.2; O2SAT 93–100; BMI 30.5
--- NOTE | 2023-11-20 07:56 | ECG_ITS ---
Test Reason : CAD, AFIB Blood Pressure : / mmHG Vent. Rate : 065 BPM Atrial Rate : 065 BPM P-R Int : 178 ms QRS Dur : 082 ms QT Int : 382 ms P-R-T Axes : 020 023 055 degrees QTc Int : 397 ms Normal sinus rhythm Septal infarct , age undetermined Abnormal ECG No previous ECGs available Referred By: Renee Caicedo Electronically Signed By:AKBAR WHIET
[2023-11-20 08:32] LABS: Hematocrit 42.3 % (42.0-52.0); Hemoglobin 13.7 g/dl (14.0-18.0); Mean Corpuscular HGB Conc 32.4 g/dl (31.0-36.0); Mean Corpuscular Hemoglobin 28.2 pg (27.0-33.0); Platelet Count 281 X10*3/uL (160-400); Red Blood Count 4.86 X10*6/uL (4.60-5.80); Red Cell Distribution Width 13.2 % (11.0-16.0); White Blood Count 9.6 X10*3/uL (4.8-10.8)
[2023-11-20] MEDS: Lactated Ringers 1,000 ML 50 ML IVCONT (08:41)
[2023-11-20 08:46] LABS: Anion Gap 11 (12-20); Blood Urea Nitrogen 11 mg/dL (9-16); Calcium 9.2 mg/dL (8.4-10.2); Carbon Dioxide 26 mmol/L (22-29); Chloride 105 mmol/L (96-108); Estimated Glomerular Filt Rate > 60; Glucose Fasting 116 mg/dL (60-99); Potassium 4.1 mmol/L (3.3-5.1); Sodium 138 mmol/L (135-145)
--- NOTE | 2023-11-20 08:52 | MHC.SHP ---
Pre-Procedural Eval Section A - 24 Hr Update-Section A only Date of Service: 11/20/23 Section B - Complete if H&P > 30 days Chief Complaint: Unspecified hemorrhoids Details of Present Illness: Has had bleeding hemorrhoids, wants hemorrhoidectomy Relevant Family History (Specify if Yes): No Relevant Social History: None Present Medications: see Short Stay Collaborative assessment Medical History: Significant History (Coronary artery disease, on antiplatelet) Allergies: Allergies Allergy/AdvReac Type Severity Reaction Status Date / Time No Known Allergies Allergy Verified 11/18/23 12:12 Review of Systems Sugical H&P ROS: Negative: Constitution, Cardiovascular, Respiratory, Neurological, Psychiatric, Hem-Onc, Allergic/Immunologic, Gastrointestinal, Genitourinary, Musculoskeletal, Integumentary, Endocrine and Eyes/Ears/Nose/Throat Exam Surgical H&P Exam: Normal: HEENT, Normal: Heart, Normal: Lungs, Normal: Extremities, Normal: Abdomen, Normal: Skin and Normal: Neurological Exam Comment: Hemorrhoids left and right Plan Diagnosis/Plan: Unchanged I have reviewed the history and physical and performed a pertinent physical examination on my patient. No changes have occurred unless specified. Time Spent With Patient Time: Total time managing care of this patient today ____ minutes.
--- NOTE | 2023-11-20 10:00 | W.PM.OPN ---
Operative Note Operative Note Date of Service: 11/20/23 Narrative: Preop diagnosis: Bleeding hemorrhoids Postop diagnosis: Bleeding hemorrhoids, internal and external Procedure: Exam under anesthesia, hemorrhoidectomy x2 columns Surgeon: Bharath Delaney The patient is a 53-year-old male was had frequent bleeding with his hemorrhoids. He is on Plavix for stents for his coronary disease. He therefore wanted to proceed with hemorrhoidectomy. He understood the technique of the planned procedure as well as the risks, benefits, and alternatives He was brought to the operating room. He was placed in prone patricia-knife position under general anesthesia via endotracheal tube. The buttocks were retracted with wide tape laterally. The perianal area was prepped and draped in the usual sterile fashion. A surgical time-out was done. The patient received Cefotan 2 g IV preoperatively. I infiltrated the perianal area with lidocaine 1%. Examination of the anal orifice revealed external hemorrhoids on both the left and the right side. I inserted the Kayce Jalloh retractor and examined the anal canal circumferentially. These hemorrhoidal columns 1 on the left and 1 on the right were seen. These were noted to be a mix of internal external hemorrhoids. The hemorrhoidal column on the right appeared to bleed easily. I therefore applied a Salas grasper on this hemorrhoidal column to retract this. I made a figure of 8 stitch at its pedicle using a chromic 3-0. I made an incision around this hemorrhoidal column to the perianal skin with a blade 15. I excised this hemorrhoidal column above the plane of the sphincters along this incision using scissors. I closed the incision with a running chromic 3-0 stitch. Additional hemostatic vbqqea-[id number] sutures were placed for oozing areas The same procedure was duplicated on the hemorrhoidal column on the left side. Again this was retracted with blunt grasper. I made a owukbv-[id number]-dqhbu stitch at the pedicle with a chromic 3-0. I made an incision around this column to the perianal skin with a blade 15 and excise this above the plane of the sphincters using scissors. I closed this incision using a running chromic 3-0 stitch with additional hemostatic sutures placed for oozing areas. There was 1 area of the mucosa on the right side that was also seemed to be oozing adjacent to the incision so I have added [id number] sutures on this Once hemostasis was confirmed, I infiltrated the perianal area with Marcaine 0.5% for postop analgesia. I positioned a rolled Gelfoam into the anal canal. The procedure was then completed. The patient tolerated the procedure well. There were no immediate complications. Initial and final counts of sponges and instruments were correct. Estimated blood loss about 40 cc. The patient was extubated without difficulty and transferred to the recovery room with stable vital signs .
[2023-11-20] MEDS: fentaNYL citrate/PF 100 MCG/2 ML VIAL 50 MCG IVPUSH (10:34)
== END 2023-11-20 11:40 | disposition home or self-care (01) ==
PROVIDERS: Nurse Practitioner; PCP Student in an Organized Health Care Education/Training Program; Visit Provider Surgery
PROC: (CPT 46260; principal; 2023-11-20 09:30)
DX: K64.8 Other hemorrhoids (principal); K64.4 Residual hemorrhoidal skin tags; I25.10 Atherosclerotic heart disease of native coronary artery without angina pectoris; Z95.5 Presence of coronary angioplasty implant and graft; Z79.01 Long term (current) use of anticoagulants; Z79.899 Other long term (current) drug therapy; Z87.891 Personal history of nicotine dependence
CPT/HCPCS: 46260; 36415; 80048; 85027; 88304; 93005; J0330; J1100; J2250; J2405; J2704; J2795; J3010

== ENCOUNTER → 2023-11-20 07:47 | Outpatient (BNV) | payer MEDICARE, MEDICAID, SELFPAY | PROVIDERS: PCP Student in an Organized Health Care Education/Training Program; Visit Provider Surgery | DX: K64.8 Other hemorrhoids (principal) | CPT/HCPCS: 46260 ==

== ENCOUNTER → 2023-11-20 07:56 | Outpatient (BNV) | payer MEDICARE, MEDICAID, SELFPAY | PROVIDERS: PCP Student in an Organized Health Care Education/Training Program; Visit Provider Internal Medicine | DX: I48.91 Unspecified atrial fibrillation (principal); I25.10 Atherosclerotic heart disease of native coronary artery without angina pectoris | CPT/HCPCS: 93010 ==

== ENCOUNTER 2023-12-03 09:23 | Outpatient (AMB) | payer MEDICARE, MEDICAID, SELFPAY ==
--- NOTE | 2023-12-03 09:30 | A.OFFVIS_ITS ---
Vital Signs 12/03/23 09:39 Weight 189 lb BP 108/55 L Blood Pressure Location Rt brachial Position Sitting Pulse 73 Intake Visit Reasons: S/P EUA, hemorrhoidectomy Intake Note: This patient presents for a post-op assessment status post EUA, hemorrhoidectomy. Pt c/o; reports pain. 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 He tolerated procedure well. He currently denies significant complaints although admits to some pain on the surgical site. [facility] Medical History PVD (peripheral vascular disease) SOB (shortness of breath) Cardiomyopathy Glaucoma GERD (gastroesophageal reflux disease) NSTEMI (non-ST elevated myocardial infarction) A-fib Anticoagulated Coronary artery disease Bleeding hemorrhoids Tubular adenoma Surgical History History of trabeculectomy Stented coronary artery Hx of colonoscopy History of esophagogastroduodenoscopy (EGD) Hx of eye surgery Social History Household Members: Significant Other Housing: Apartment Are you a primary early breastfeeding care specialist to a significant other at home: No Do you presently have visiting nurse or other home services: No Alcohol intake: current Alcohol intake frequency: holidays/special occasions only Patient Tobacco Use Status: Former Tobacco user Tobacco use type: Cigarette Substance Use Type: Marijuana Review of Systems Const Denies chills and Denies fever(s) Card Denies chest pain, Denies dyspnea and Denies dyspnea on exertion Resp Denies cough, Denies dyspnea and Denies dyspnea on exertion GI Denies hematochezia and Denies change in bowel habits Denies hematuria and Denies difficulty urinating Musc Denies back pain and Denies limited range of motion Neuro Denies focal weakness and Denies convulsions Psych Denies depression and Denies mood swings Physical Exam Vital Signs: Last Vital Signs Pulse 73 12/03/23 09:39 BP 108/55 L 12/03/23 09:39 Const General: comfortable and no acute distress GI Other: Rectal exam shows the hemorrhoidectomy sites to be healing well, not infected Assessment & Plan Assessment & Plan (1) Bleeding hemorrhoids: Code(s): K64.9 - Unspecified hemorrhoids Category: Medical Plan: Status post hemorrhoidectomy. He is doing well postoperatively. His incisions are healing well. His path report shows hemorrhoids I had advised him on good perianal care. He can follow up on a p.r.n. basis. Coding Level of Care Code New Pt Level 3 (22191) Global (18958) Diagnoses Bleeding hemorrhoids K64.9
[2023-12-03 09:39] VITALS: BP 108/55; PULSE 73
== END 2023-12-03 10:11 | disposition home or self-care (01) ==
PROVIDERS: PCP Student in an Organized Health Care Education/Training Program; Visit Provider Surgery
DX: K64.9 Unspecified hemorrhoids (principal)
CPT/HCPCS: 99024

== ENCOUNTER → 2023-12-03 09:23 | Outpatient (BNVA) | payer MEDICARE, MEDICAID, SELFPAY | PROVIDERS: PCP Student in an Organized Health Care Education/Training Program; Visit Provider Surgery | DX: Z51.89 Encounter for other specified aftercare (principal); K64.9 Unspecified hemorrhoids | CPT/HCPCS: 99212 ==

== ENCOUNTER 2023-12-29 15:12 | Outpatient (REF) | payer MEDICARE, MEDICAID, SELFPAY ==
[2023-12-29 18:52] LABS: Erythrocyte Sedimentation Rate 11 MM/HR (0-15)
[2023-12-29 18:53] LABS: Anion Gap 14 (12-20); Blood Urea Nitrogen 13 mg/dL (9-16); Calcium 9.6 mg/dL (8.4-10.2); Carbon Dioxide 27 mmol/L (22-29); Chloride 104 mmol/L (96-108); Estimated Glomerular Filt Rate > 60; Glucose Random 83 mg/dL (60-115); Potassium 3.6 mmol/L (3.3-5.1); Sodium 141 mmol/L (135-145)
== END 2023-12-29 15:13 | disposition home or self-care (01) ==
LOC: HO.CHCLDS 15:12
PROVIDERS: Visit Provider Internal Medicine
DX: R51.9 Headache, unspecified (principal)
CPT/HCPCS: 36415; 80048; 85652

== ENCOUNTER 2024-01-26 07:24 | Outpatient (REF) | payer MEDICARE, MEDICAID, SELFPAY ==
--- NOTE | ~2024-01-26 | CT_ITS ---
EXAMINATION: CT HEAD WITHOUT CONTRAST CLINICAL INFORMATION: New onset headache COMPARISON: None available. TECHNIQUE: Contiguous axial imaging was performed from the skull base to vertex without intravenous administration of contrast. This CT examination was performed using dose optimization techniques as appropriate, variously including the following: *Automated exposure control *Adjustment of mA and/or kV according to patient size (this includes techniques or standardized protocols for targeted exams where dose is matched to indication/reason for exam; i.e. extremities or head) *Use of iterative reconstruction technique DLP: 718 mGy-cm FINDINGS: The ventricles and sulci are normal in size and configuration. No intrarenal hemorrhage, tumors or acute infarcts visualized. No focal parenchymal lesions of the brain identified. Mild eccentric calcific plaque is present in the intradural segment left vertebral artery and minimal scattered calcific plaques are present in the cavernous portions of the internal carotid arteries. 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 Mild opacification of the right frontal sinus and anterior right ethmoid air cells is noted. No mastoid or middle ear cavity effusions visualized. CT/CT head/brain wo IV con IMPRESSION: 1. Minimal intracranial atherosclerosis; otherwise, no intracranial abnormalities identified. 2. Mild opacification of the right frontal sinus and anterior right ethmoid air cells which may correlate with sinusitis.
== END 2024-01-26 07:25 | disposition home or self-care (01) ==
LOC: HO.CT 07:24
PROVIDERS: PCP Student in an Organized Health Care Education/Training Program; Visit Provider Internal Medicine
DX: R51.9 Headache, unspecified (principal)
CPT/HCPCS: 70450

== ENCOUNTER 2025-02-27 09:44 | Outpatient (REF) | payer MEDICARE, MEDICAID, SELFPAY ==
--- OUTSIDE RECORDS SUMMARY | 2025-02-27 10:16 | XMS_ITS | Clinical Summary ---
Author Organization [employer] Address [address] [place] [address] 7[address] [place] [address] Care Team Providers Care Family Consumer Science Fcs Teacher Name Role Phone Madeline Johnson MD Primary Care Provider [phone] Allergies No known active allergies Medications Simbrinza 1-0.2 % suspension Instill 1 drop into the affected eyes 2 times daily 2 Active timolol (Timoptic) 0.5 % ophthalmic solution INSTILL 1 DROP INTO RIGHT EYE TWICE A DAY DIRECTED 2 Active Blood Pressure Monitor kitIndications:Ne w onset a-fib ([facility]) Use to check blood pressure daily 1 kit 3 Active albuterol 108 (90 Base) MCG/ACT inhalerIndication s:Mild intermittent asthma without complication Inhale 2 puffs every 4 (four) hours if needed for wheezing. 18 g 2 3 Active pantoprazole (Protonix) 40 MG EC tablet Take 40 mg by mouth 2 times daily. Do not crush, chew, or split. Active acetaminophen (Tylenol) 325 MG tablet Take 1 tablet by mouth Every 4-6 hours as needed. Active Rocklatan 0.02-0.005 % solution PLACE ONE DROP IN EACH EYE AT BEDTIME 3 Active cyclobenzaprine (Flexeril) 10 MG tablet Take 1 tablet (10 mg) by mouth 3 times daily for 10 days. 30 tablet 4 Active isosorbide mononitrate ER (Imdur) 60 MG 24 hr tablet Take 60 mg by mouth in the morning. 4 Active Pulmicort Flexhaler 180 MCG/ACT inhaler INHALE ONE PUFF BY MOUTH TWICE DAILY IN THE MORNING AND AT BEDTIME, RINSE MOUTH AFTER USE 1 each 5 Active traZODone (Desyrel) 100 MG tabletIndications :Depressive disorder TAKE ONE TABLET EVERY NIGHT AT BEDTIME FOR ANXIETY 90 tablet 5 Active docusate sodium (Colace) 100 MG capsule Take 1 capsule (100 mg) by mouth Once per day. TAKE TWO CAPSULES EVERY DAY AT BEDTIME 60 capsule 1 5 Active apixaban (Eliquis) 5 MG tabletIndications :New onset a-fib (CMS/HCC) TAKE ONE TABLET TWICE DAILY IN THE MORNING AND AT BEDTIME 60 tablet 2 5 Active aspirin (Aspirin EC Adult Low Dose) 81 MG EC tabletIndications :NSTEMI (non-ST elevated myocardial infarction) (CMS/HCC) Take 1 tablet (81 mg) by mouth in the morning. 90 tablet 5 Active atorvastatin (Lipitor) 80 MG tabletIndications :New onset a-fib (CMS/HCC) Take 1 tablet (80 mg) by mouth Once per day. 90 tablet 5 Active clopidogrel (Plavix) 75 MG tabletIndications :New onset a-fib (CMS/HCC) Take 1 tablet (75 mg) by mouth in the morning. 90 tablet 5 Active valsartan (Diovan) 40 MG tabletIndications :New onset a-fib (CMS/HCC) Take 1 tablet (40 mg) by mouth in the morning. 90 tablet 5 Active metoprolol succinate XL (Toprol-XL) 25 MG 24 hr tabletIndications :New onset a-fib (CMS/HCC) Take 1 tablet (25 mg) by mouth in the morning. 90 tablet 5 Active fluticasone furoate (Arnuity Ellipta) 100 MCG/ACT inhaler Inhale 1 puff Once per day. Rinse mouth with water after use to reduce aftertaste and incidence of candidiasis. Do not swallow. 1 each 5 01/13/20 Active Active Problems Patient Care Coordination No te Formatting of this note migh t be different from the original. C3/CM Celi Meehan RN Problem Noted Date Diagnosed Date Rectal bleeding 07/24/2023 New onset a-fib 07/25/2022 NSTEMI (non-ST elevated myocardial infarction) 0 07/25/2022 Glaucoma 11/14/2016 Mild intermittent asthma 11/14/2016 Depressive disorder 11/14/2016 Encounters Date Type Department Care Team Description 01/11/2025 Refill [facility] [address] [facility] [place] [address] Madeline Johnson MD 01/09/2025 Refill [facility] [address] [facility] [place] [address] Madeline Johnson MD NSTEMI (non-ST elevated myocardial infarction) ([facility]); New onset a-fib ([facility]) 01/03/2025 Refill [facility] [address] [facility] [place] [address] Madeline Johnson MD New onset a-fib ([facility]) 12/09/2024 Refill [facility] [address] [facility] [address] Madeline Johnson MD 12/02/2024 Refill [facility] [address] [place] [address] Madeline Johnson MD Depressive disorder from Last 3 Months Immunizations Immunization Administration Dates Next Due Influenza Injectable Quadriv alant Preservative Free IIV4 MDCK 07/04/2022 Pneumococcal Conjugate PCV 20 07/09/2022 Tdap 10/07/2018,10/06/2013,09/27/2011 Zoster, Recombinant 11/27/2022,07/09/2022 Social History Tobacco Use Types Packs/Day Years Used Date Smoking Tobacco: Former Cigarettes Passive Smoke Exposure: Past Smokeless Tobacco: Never Tobacco Cessation:Counseling Given: Not Answered Alcohol Use Standard Drinks/Week Comments Yes 2 (1 standard drink = 0.6 oz pur e alcohol) 1-2 drinks on weekends Depression Answer Date Recorded Patient Health Questionnaire-9 Score 0 07/04/2022 Housing Stability Answer Date Recorded What is your housing situation today? I have jeffrey bergman 05/05/[address] you li ve. Do you have problems with any of the following? None of the above 05/05/2023 Food Insecurity Answer Date Recorded Within the past 12 months, y ou worried that your food would run out before you got money to buy more: Never True 05/05/2023 Within the past 12 months,th e food you bought just didn't last and you didn't have enough money to get more: Never True Transportation Answer Date Recorded In the past 12 months, has l ack of transportation kept you from medical appts, meetings, work or from getting things needed for daily living? No 05/05/2023 Utilities Answer Date Recorded In the past 12 months, has t he [employer], gas, oil or water company threatened to shut off services in your home? No 05/05/2023 Depression Answer Date Recorded Patient Health Questionnaire-2 Score 0 07/04/2022 Sex and Gender Information Value Date Recorded Sex Assigned at Male 05/19/2022 10:31 AM EDT Legal Sex Male 10:31 AM EDT Gender Identity Male 05/19/2022 10:31 AM EDT Sexual Orientation Straight 05/19/2022 10 :31 AM EDT Last Filed Vital Signs Vital Sign Reading Time Taken Comments Blood Pressure 123/84 12/28/2023 5:01 PM EDT Pulse 85 12/28/2023 5:01 PM EDT Temperature 36.3 C (97.3 F) 12/28/2023 5:01 PM EDT Respiratory Rate 20 12/28/2023 5:01 PM EDT Oxygen Saturation 96% 07/24/2023 11:18 AM EST Inhaled Oxygen Concentration - - Weight 88 kg (194 lb) 12/28/2023 5:01 PM EDT Height 170.2 cm (5' 7 ) 12/28/2023 5:01 PM EDT Body Mass Index 30.38 12/28/2023 5:01 PM EDT Plan of Treatment Health Maintenance Due Date Last Done Comments CT Colonography 1969 FIT DNA/Cologuard 1969 FIT 1969 FOBT 1969 HIV Screening 1969 Sigmoidoscopy 1969 Disability Screening 1969 Alcohol/Substance Use Screening 1981 Hepatitis C Screening 1987 Hepatitis B Vaccines (1 of 3 - 19+ 3-dose series) 1988 Dental Oral Exam 09/08/2022 03/07/2022 Dental Prophylaxis 10/29/2022 04/29/2022 Dental X-Ray: Bitewings 03/08/2023 03/07/2022 Depression Screening 07/04/2023 07/04/2022, 07/04/2022 SDOH Screening 07/04/2023 07/04/2022 COVID-19 Vaccine (3 - 2023-2 5 season) 2024 02/14/2021, 01/15/2021 Tobacco Screening 12/27/2024 12/28/2023 Dental X-Ray: Full Mouth 03/08/2025 03/07/2022 Influenza Vaccine (#1) 2025 07/04/2022 Colonoscopy 04/08/2025 04/08/2022 Colorectal Cancer Screening 04/08/2025 Lipid Panel 06/05/2026 06/05/2021 DTaP/Tdap/Td Vaccines (4 - T d or Tdap) 10/07/2028 10/07/2018, 10/06/2013, 09/27/2011 RSV Patients and Patients Aged 60 years or older (1 - 1-dose 75+ series) 2044 Pneumococcal Vaccine: 50+ Years Completed 07/09/2022 Zoster Vaccines Completed 11/27/2022, 07/09/2022 HIB Vaccines Aged Out No longer eligi ble based on patient's age to complete this topic HPV Vaccines Aged Out No longer eligi ble based on patient's age to complete this topic Hepatitis A Vaccines Aged Out No long er eligible based on patient's age to complete this topic IPV Vaccines Aged Out No longer eligi ble based on patient's age to complete this topic Meningococcal B Vaccine Aged Out No l onger eligible based on patient's age to complete this topic Meningococcal Vaccine Aged Out No hannah lele eligible based on patient's age to complete this topic RSV under 20 months Aged Out No longe r eligible based on patient's age to complete this topic Rotavirus Vaccines Aged Out No longer eligible based on patient's age to complete this topic Goals Goal Patient Goal Type Associated Problems Recent Progress Patient-Stated? Author Blood Pressure < 140/90 Blood Pressure 123/84(2023 5:01 PM EDT) No Jose Concepcion, PharmD Patient will adhere to medication regimen General No Jose Concepcion PharmD Procedures Procedure Name Priority Date/Time Associated Diagnosis Comments COLONOSCOPY Routine 04/08/2022 LIPID PANEL, STANDARD Routine 06/05/2021 8:32 AM EST from Last 3 Months or Most Recently Relevant to Health Maintenance Results * (ABNORMAL) Colonoscopy (04/08/2022) Colonoscopy Abnormal( A) Normal Comment:repeat in 2-3 year d ue to polyps and fair prep Sommer Mora MD HEALTH MAINTENANCE Final Result * (ABNORMAL) LIPID PANEL, STANDARD (06/05/2021 8:32 AM EST) Chol/HDLC Ratio 5.3(H) <5.0 (calc) [facility] Cholesterol, Total 184 <200 mg/dL [facility] HDL Cholesterol 35(L) > OR = 40 mg/dL [facility] LDL Cholesterol 112(H) mg/dL (calc) [facility] Comment: Reference range: <100 Desirable range <100 mg/dL for primary prevention; <70 mg/dL for patients with CHD or diabetic patients with > or = 2 CHD risk factors. LDL-C is now calculated using the Nikita-Barney calculation, which is a validated novel method providing better accuracy than the Friedewald equation in the estimation of LDL-C. Nikita SS et al. GRACY. 2013;310(19): 2102-1269 (http://education.Tradeos.com/faq/CSN958) Non-HDL Cholesterol 149(H) <130 mg/dL (calc) [facility] Comment: For patients with diabetes plus 1 major ASCVD risk factor, treating to a non-HDL-C goal of <100 mg/dL (LDL-C of <70 mg/dL) is considered a therapeutic option. Triglycerides 242(H) <150 mg/dL [facility] Comment: If a non-fasting specimen was collected, consider repeat triglyceride testing on a fasting specimen if clinically indicated. Varun et al. J. of Clin. Lipidol. 2015;9:129-169. 06/05/2021 8:32 AM EST us Madeline Johnson MD LAB BLOOD ORDERABLES Final Resul t [facility] [address] from Last 3 Months or Most Recently Relevant to Health Maintenance Insurance MEDICARE Member Subscriber Plan / Payer (Ef fective 2022-Present) Name:Rossana Aldocarlianne marie Member ID:[id number] Relation to Subscriber:Self Name:Yancik Tracy Subscriber ID:[id number] Payer ID:STATE Group ID:Not on file Type:Medicare Address: [facility] [address] [id number] [facility] MEDICAID STAND ADULT PROGRESSIVE [employer] Care Teams Family Consumer Science Fcs Teacher Relationship Specialty Start Date End Date Madeline Johnson MD [address] [place] [id number] PCP - General Family Medicine 11/14/16
[2025-02-27 14:23] LABS: MANUAL DIFF FLAG NO
[2025-02-27 14:45] LABS: INTERNATIONAL NORM RATIO 0.9 (0.9-1.1); Prothrombin Time 10.3 SEC (10.9-12.4)
[2025-02-27 14:46] LABS: Hematocrit 44.8 % (42.0-52.0); Hemoglobin 14.6 g/dl (14.0-18.0); Imm Gran Abs Auto 0.03 X10*3/uL (0.00-0.03); Imm Gran Pct Auto 0.4 % (0.0-0.4); Lymphocytes Absolute Auto 1.5 X10*3/uL (1.2-4.9); Mean Corpuscular HGB Conc 32.6 g/dl (31.0-36.0); Mean Corpuscular Hemoglobin 28.9 pg (27.0-33.0); Mean Corpuscular Volume 88.5 fL (80.0-98.0); NRBC Abs Auto 0.000 X10*3/uL (0.0-0.012); NRBC Pct Auto 0.0 /100WBC (0.0-0.2); Platelet Count 264 X10*3/uL (160-400); Red Blood Count 5.06 X10*6/uL (4.60-5.80); White Blood Count 7.9 X10*3/uL (4.8-10.8)
[2025-02-27 15:09] LABS: Anion Gap 10 (12-20); Blood Urea Nitrogen 13 mg/dL (9-16); Calcium 8.8 mg/dL (8.4-10.2); Carbon Dioxide 27 mmol/L (22-29); Chloride 109 mmol/L (96-108); Estimated Glomerular Filt Rate > 60; Potassium 4.2 mmol/L (3.3-5.1); Sodium 142 mmol/L (135-145)
== END 2025-02-27 09:45 | disposition home or self-care (01) ==
LOC: HO.CHCLDS 09:44
PROVIDERS: PCP Student in an Organized Health Care Education/Training Program; Visit Provider Internal Medicine Cardiovascular Disease
DX: I25.10 Atherosclerotic heart disease of native coronary artery without angina pectoris (principal); I21.4 Non-ST elevation (NSTEMI) myocardial infarction; I42.9 Cardiomyopathy, unspecified; R06.02 Shortness of breath
CPT/HCPCS: 36415; 80048; 85025; 85610

== ENCOUNTER 2025-03-30 10:39 | Emergency (ER) | payer SELFPAY ==
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
[2025-03-30 10:53] VITALS: BP 125/76; PULSE 81; RESP 16; TEMP 36.4; O2SAT 94; BMI 27.4
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
[2025-03-30 12:31] VITALS: BP 125/76; PULSE 81; RESP 16; TEMP 36.4; O2SAT 94
--- OUTSIDE RECORDS SUMMARY | 2025-03-30 16:21 | XMS_ITS | Encounter Summary ---
Author Organization [employer] Address [address] [facility] [address] [place] [address] Care Team Providers Care Amusement Park Entertainer Name Role Phone Madeline Johnson MD Primary Care Provider [phone] Encounter Details Date Type Department Care Team (Latest Contact Info) Description 03/07/2022 Abstract [facility] CONVERSIONS Dental, Provider, DDS Social History Tobacco Use Types Packs/Day Years Used Date Smoking Tobacco: Never Assessed Sex and Gender Information Value Date Recorded Sex Assigned at Male 05/19/2022 10:31 AM EDT Legal Sex Male 10:31 AM EDT Gender Identity Male 05/19/2022 10:31 AM EDT Sexual Orientation Straight 05/19/2022 10 :31 AM EDT documented as of this encounter Plan of Treatment Not on file documented as of this encounter Visit Diagnoses Not on filedocumented in this encounter Care Teams Amusement Park Entertainer Relationship Specialty Start Date End Date Madeline Johnson MD [address] [place] [id number] PCP - General Family Medicine 11/14/16 documented as of this encounter
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
--- OUTSIDE RECORDS SUMMARY | 2025-03-30 16:21 | XMS_ITS | Encounter Summary ---
Author Organization [employer] Address [address] [place] [address] 7 [place] [address] Care Team Providers Care Assistant To The President Name Role Phone Madeline Johnson MD Primary Care Provider [phone] Reason for Referral * Imaging (Routine) - Closed Specialty Diagnoses / Procedures Referred By Ezequiel penn Referred To Contact Radiology Diagnoses New onset headache Procedures CT Head w/o Contrast Atif Gimenez MD [address] [place] [address] Phone: tel: fax: [address] Phone: tel: fax: Referral ID Status Reason Start Date Expiration Date Visits Re quested Visits Authorized [id number] Closed 01/05/2024 01/04/2025 1 1 Encounter Details Date Type Department Care Team (Late st Contact Info) Description 01/05/2024 Orders Only [facility] CHC MED & PEDS [address] [place], [place] [phone] Atif Gimenez MD [address] [place], [place] [phone] New onset headache (Primary Dx) Social History Tobacco Use Types Packs/Day Years [...] will adhere to medication regimen General No Carlene, Jose, PharmD documented as of this encounter Procedures Procedure Name Priority Date/Time Associated Diagnosis Comments CT HEAD WO CONTRAST Routine 01/26/2024 7 :57 AM EDT New onset headache documented in this encounter Results * CT Head w/o Contrast (01/26/2024 7:57 AM EDT) Anatomical Region Laterality Modality Head, Neck Computed Tomogra phy 01/26/2024 7:57 AM EDT Narrative 02/13/2024 9:45 AM EDT [address] [address] [address] Scan Report Signed Patient: Yanick Tracy MR#: [id number] 1 : 1970 Acct:[id number] Age/Sex: 53 / M ADM Date: 01/26/24 Loc: HO.CT Attending Dr: Atif Gimenez MD Ordering Physician: Atif Gimenez MD Date of Service: 01/26/24 Procedure(s): CT head/brain wo IV con Accession Number(s): [id number] cc: Atif Gimenez MD; Madeline Johnson MD EXAMINATION: CT HEAD WITHOUT CONTRAST CLINICAL INFORMATION: New onset headache COMPARISON: None available. TECHNIQUE: Contiguous axial imaging was performed from the skull base to vertex without intravenous administration of contrast. This CT examination was performed using dose optimization techniques as appropriate, variously including the following: *Automated exposure control *Adjustment of mA and/or kV according to patient size (this includes techniques or standardized protocols for targeted exams where dose is matched to indication/reason for exam; i.e. extremities or head) *Use of iterative reconstruction technique DLP: 718 mGy-cm FINDINGS: The ventricles and sulci are normal in size and configuration. No intrarenal hemorrhage, tumors or acute infarcts visualized. No focal parenchymal lesions of the brain identified. Mild eccentric calcific plaque is present in the intradural segment left vertebral artery and minimal scattered calcific plaques are present in the cavernous portions of the internal carotid arteries. 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 Mild opacification of the right frontal sinus and anterior right ethmoid air cells is noted. No mastoid or middle ear cavity effusions visualized. CT/CT head/brain wo IV con IMPRESSION: 1. Minimal intracranial atherosclerosis; otherwise, no intracranial abnormalities identified. 2. Mild opacification of the right frontal sinus and anterior right ethmoid air cells which may correlate with sinusitis. Dictated By: Lee Davis MD Signed By: <Electronically signed by Lee Davis MD in OV> 02/13/24 0942 DD/ 0757 TD/TT: Assistant Account Manager: EF Procedure Note Donotuseinterpreter, Image - 02/13/[address] [address] [address] Scan Report Signed Patient: Mayra Tracy#: [id number] 1 : 1970Acct:[id number] Age/Sex: 53 / MADM Date: 01/26/24 Loc: HO.CT Attending Dr: Atif Gimenez MD Ordering Physician: Atif Gimenez MD Date of Service: 01/26/24 Procedure(s): CT head/brain wo IV con Accession Number(s): [id number] cc: Atif Gimenez MD; Madeline Johnson MD EXAMINATION: CT HEAD WITHOUT CONTRAST CLINICAL INFORMATION: New onset headache COMPARISON: None available. TECHNIQUE: Contiguous axial imaging was performed from the skull base to vertex without intravenous administration of contrast. This CT examination was performed using dose optimization techniques as appropriate, variously including the following: *Automated exposure control *Adjustment of mA and/or kV according to patient size (this includes techniques or standardized protocols for targeted exams where dose is matched to indication/reason for exam; i.e. extremities or head) *Use of iterative reconstruction technique DLP: 718 mGy-cm FINDINGS: The ventricles and sulci are normal in size and configuration. No intrarenal hemorrhage, tumors or acute infarcts visualized. No focal parenchymal lesions of the brain identified. Mild eccentric calcific plaque is present in the intradural segment left vertebral artery and minimal scattered calcific plaques are present in the cavernous portions of the internal carotid arteries. 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 Mild opacification of the right frontal sinus and anterior right ethmoid air cells is noted. No mastoid or middle ear cavity effusions visualized. CT/CT head/brain wo IV con IMPRESSION: 1. Minimal intracranial atherosclerosis; otherwise, no intracranial abnormalities identified. 2. Mild opacification of the right frontal sinus and anterior right ethmoid air cells which may correlate with sinusitis. Dictated By: Lee Davis MD Signed By: <Electronically signed by Lee Davis MD in OV> 02/13/24 0942 DD/ 0757 TD/TT: Assistant Account Manager: EF Atif Gimenez MD IMG CT PROCEDURES Edited Re galat - Final documented in this encounter Visit Diagnoses Diagnosis New onset headache- Primary Headache documented in this encounter Additional Health Concerns Assessment Noted Time PHQ-9 Depression Total Score: 0 07/04/20 22 9:42 AM EST documented as of this encounter Care Teams Assistant To The President Relationship Specialty Start Date End Date Madeline Johnson MD [address] [place] [phone] PCP - General Family Medicine 11/14/16 documented as of this encounter
--- OUTSIDE RECORDS SUMMARY | 2025-03-30 16:21 | XMS_ITS | Encounter Summary ---
Author Organization [employer] Address [address] [facility] 7t [place] [address] Care Team Providers Care Matrix Plater Name Role Phone Madeline Johnson MD Primary Care Provider [phone] Encounter Details Date Type Department Care Team ([facility] st Contact Info) Description 02/15/2024 Orders Only [facility] CHC MED & PEDS [address] [place] [address] Atif Gimenez MD [address] [place] [address] Acute non-recurrent frontal sinusitis (Primary Dx) Social History Tobacco Use Types [...] adhere to medication regimen General No Jose Concepcion, PharmD documented as of this encounter Visit Diagnoses Diagnosis Acute non-recurrent frontal sinusitis- Primary documented in this encounter Additional Health Concerns Assessment Noted Time PHQ-9 Depression Total Score: 0 07/04/20 22 9:42 AM EST documented as of this encounter Care Teams Matrix Plater Relationship Specialty Start Date End Date Madeline Johnson MD [address] [place] [address] PCP - General Family Medicine 11/14/16 documented as of this encounter
--- OUTSIDE RECORDS SUMMARY | 2025-03-30 16:21 | XMS_ITS | Encounter Summary ---
Author Organization [employer] Address [address] [facility] 7t [place] [address] Care Team Providers Care Engineering Consultant Name Role Phone Madeline Johnson MD Primary Care Provider [phone] Encounter Details Date Type Department Care Team (Latest Contact Info) Description 10/01/2020 Abstract [facility] CONVERSIONS Dental, Provider, DDS Social History Tobacco [...] on filedocumented in this encounter Care Teams Engineering Consultant Relationship Specialty Start Date End Date Madeline Johnson MD [address] [place] [address] PCP - General Family Medicine 11/14/16 documented as of this encounter
--- OUTSIDE RECORDS SUMMARY | 2025-03-30 16:21 | XMS_ITS | Encounter Summary ---
Author Organization [employer] Address [address] [place] [address] 7t [place] [address] Care Team Providers Care Head Cleaning Porter Name Role Phone Madeline Johnson MD Primary Care Provider [phone] Reason for Visit * Reason Comments Med Refill Encounter Details Date Type Department Care Team (Late st Contact Info) Description 09/09/2022 Refill [facility] MEDICINE [address] [place] [address] Madeline Johnson MD [address] [place], [place] [phone] Depressive disorder (Primary Dx) Social History Tobacco Use Types Packs/Day Years Used Date Smoking Tobacco: Every Day Cigarettes Depression Answer Date Recorded Patient Health Questionnaire-9 Score 0 07/04/2022 Depression Answer Date Recorded Patient Health Questionnaire-2 [...] as of this encounter Visit Diagnoses Diagnosis Depressive disorder- Primary Depressive disorder, not elsewhere classified documented in this encounter Additional Health Concerns Assessment Noted Time PHQ-9 Depression Total Score: 0 07/04/20 9:42 AM EST documented as of this encounter Care Teams Head Cleaning Porter Relationship Specialty Start Date End Date Madeline Johnson MD [address] [place] [address] PCP - General Family Medicine 11/14/16 documented as of this encounter
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
== END 2025-03-30 12:31 | disposition home or self-care (01) ==
PROVIDERS: Emergency Provider Student in an Organized Health Care Education/Training Program; PCP Student in an Organized Health Care Education/Training Program
DX: S16.1XXA Strain of muscle, fascia and tendon at neck level, initial encounter (principal); M54.2 Cervicalgia; M54.50 Low back pain, unspecified; I10 Essential (primary) hypertension; I48.91 Unspecified atrial fibrillation; Z79.01 Long term (current) use of anticoagulants; V49.9XXA Car occupant (driver) (passenger) injured in unspecified traffic accident, initial encounter; Y93.9 Activity, unspecified; Y92.9 Unspecified place or not applicable; Y99.9 Unspecified external cause status
CPT/HCPCS: 72040; 72072; 99282; 99283

== ENCOUNTER → 2025-03-30 11:08 | Outpatient (BNV) | payer MEDICARE, MEDICAID, SELFPAY | PROVIDERS: Emergency Provider Student in an Organized Health Care Education/Training Program; PCP Student in an Organized Health Care Education/Training Program; Visit Provider Radiology Diagnostic Radiology | DX: M50.322 Other cervical disc degeneration at C5-C6 level (principal); M54.6 Pain in thoracic spine | CPT/HCPCS: 72040; 72072 ==